=== PATIENT | female | born 1955 | race Two or more races ===

== ENCOUNTER 2023-12-29 14:20 | Emergency (ER) | payer OTHER ==
[~2023-12-29] VITALS: Ht 165.1 cm; Wt 77.1 kg
[2023-12-29] MEDS ORDERED: ATORVASTATIN CA20 MG PO (14:33)
[2023-12-29] MEDS ORDERED: CEFTRIAXONE SODIUM 1,000 MG VIAL IV ONE (16:45)
[2023-12-29] MEDS ORDERED: KETOROLAC TROMETHAMINE 30 MG VIAL IU ONE (16:45)
[2023-12-29] MEDS ORDERED: ORPHENADRINE CITRATE 30 MG/ML AMPUL IM ONE (17:30)
[2023-12-29 18:43] LABS: HEMATOCRIT 38.4 % (36.0-45.00); HEMOGLOBIN 13.4 g/dL (12.0-15.00); MEAN CELL VOLUME 89.8 fL (80.00-100.00); MEAN CORPUSCULAR HEMOGLOBIN 31.4 pg (27.00-32.0); PLATELET COUNT 226 K/uL (150-450); RED BLOOD COUNT 4.28 M/uL (4.00-6.00); RED CELL DISTRIBUTION WIDTH 13.4 % (11.5-14.5)
[2023-12-29] MEDS ORDERED: OxyCODONE HCL/APAP UD (PERCOCET) PO ONE (20:00)
== END 2023-12-29 22:15 | disposition home or self-care (01) ==
LOC: ER 14:20
PROVIDERS: Emergency Medicine
DX: M62.830 Muscle spasm of back (principal); R53.81 Other malaise; Z88.2 Allergy status to sulfonamides
CPT/HCPCS: 36415; 70220; 72040; 96365; 96372; 99284; J0696; J1885; J2360

== ENCOUNTER 2023-12-30 16:45 | Emergency (ER) | payer OTHER ==
[~2023-12-30] VITALS: Ht 165.1 cm; Wt 77.1 kg
[~2023-12-30 16:45] MED LIST: ATORVASTATIN CA20 MG PO
[2023-12-30] MEDS ORDERED: DEXAMETHASONE SODIUM PHOSPHATE 4 MG/ML VIAL IM STA (20:59)
[2023-12-30] MEDS ORDERED: ORPHENADRINE CITRATE 30 MG/ML AMPUL IM STA (21:00)
[2023-12-30 21:38] LABS: HEMATOCRIT 34.8 % (36.0-45.00); HEMOGLOBIN 12.3 g/dL (12.0-15.00); MEAN CELL VOLUME 88.9 fL (80.00-100.00); MEAN CORPUSCULAR HEMOGLOBIN 31.6 pg (27.00-32.0); MEAN CORPUSCULAR HGB CONC 35.5 g/dl (32.0-36.0); PLATELET COUNT 222 K/uL (150-450); RED BLOOD COUNT 3.91 M/uL (4.00-6.00); RED CELL DISTRIBUTION WIDTH 13.2 % (11.5-14.5)
[2023-12-30 22:24] LABS: ALBUMIN 2.9 gm/dL (3.4-5.0); BILIRUBIN TOTAL 0.88 mg/dL (0.3-1.2); CALCIUM 9.1 mg/dL (8.5-10.1); CREATININE SERUM 0.84 mg/dL (0.55-1.02); GFR 67.22; GLOBULINA 4.4 G/DL (2.4-3.5); POTASSIUM 3.72 mEq/L (3.5-5.1); TOTAL PROTEIN 7.3 gm/dL (6.4-8.2)
[2023-12-31] MEDS ORDERED: KETO10TA2 PO (00:10)
== END 2023-12-31 00:21 | disposition home or self-care (01) ==
LOC: ER 16:45
PROVIDERS: General Practice
DX: R51.9 Headache, unspecified (principal); Z88.2 Allergy status to sulfonamides; E78.00 Pure hypercholesterolemia, unspecified
CPT/HCPCS: 70450; 96372; 99284; J1885; J2360